=== PATIENT | female | born 1980 | race Two or more races ===

== ENCOUNTER 2023-12-22 09:05 | Emergency (ER) | payer OTHER ==
[~2023-12-22] VITALS: Ht 139.7 cm; Wt 49.3 kg
[2023-12-22 09:28] VITALS: BP 131/74; PULSE 91; RESP 18; O2SAT 98
[2023-12-22 10:22] VITALS: TEMP 99.1
[2023-12-22] MEDS ORDERED: PROM1SOL4 PO (10:24)
[2023-12-22] MEDS ORDERED: AZIT-185 PO (10:24)
== END 2023-12-22 10:32 | disposition home or self-care (01) ==
LOC: ER 09:05
DX: J20.9 Acute bronchitis, unspecified (principal); J03.90 Acute tonsillitis, unspecified
CPT/HCPCS: 71045